=== PATIENT | female | born 1985 | race Caucasian/White ===

== ENCOUNTER 2023-08-21 06:51 | Outpatient (CLI) | payer OTHER, SELFPAY ==
--- NOTE | ~2023-08-21 | CT_ITS ---
EXAMINATION: CT abdomen pelvis w con DATE: 08/21/2023 07:32 INDICATION: Acute abdominal pain TECHNIQUE: Computed tomography (CT) of the abdomen and pelvis was performed with 100 cc Omnipaque 350 intravenous contrast. The dose-length product was 1208.24 mGy-cm. Automated exposure control and ite rative reconstruction technique were employed. COMPARISON: None. FINDINGS: Lung bases unremarkable. No significant vascular abnormality. There is ileocolic lymphadeno jael, suspicious for mesenteric adenitis. No free air or free fluid. Nonobstructive bowel pattern. F atty infiltration of the liver. The spleen, pancreas, adrenal glands and kidneys are unremarkable. Ti ny fat-containing umbilical hernia. Status post appendectomy. No abnormal pelvic masses or fluid sofya ections. No acute osseous abnormality. IMPRESSION: 1. Ileocolic lymphadenopathy, suspicious for mesenteric adenitis. 2: Fatty infiltration of the liver. Reviewed, dictated and finalized at location B.
== END 2023-08-21 06:52 | disposition home or self-care (01) ==
PROVIDERS: PCP Physician Assistant; Visit Provider Physician Assistant
DX: R10.9 Unspecified abdominal pain (principal); R19.5 Other fecal abnormalities; K76.0 Fatty (change of) liver, not elsewhere classified; R59.1 Generalized enlarged lymph nodes
CPT/HCPCS: 74177; Q9967